=== PATIENT | male | born 1950 | race Caucasian/White ===

== ENCOUNTER 2023-05-08 11:11 | Outpatient (RCR) | payer MEDICARE, BC, SELFPAY ==
--- NOTE | 2023-05-08 14:18 | PT.OPEX ---
PT [facility] Out[facility] Eval PT LD Outpatient Eval Start: 05/08/23 14:11 Freq: Status: Active Protocol: Document 05/08/23 14:11 TRUPTI (Rec: 05/08/23 14:13 TRUPTI [id number]) E-signed By Sin Lynn DPT, MS Physical Therapy Outpatient Evaluation Insurance Information Recert Due Date 08/06/23 Insurance Name Medicare B,[employer] Medical Diagnosis Benign paroxysmal vertigo, unspecified ear Treating Diagnosis Dizziness Subjective Subjective Patient presents to PT with c/ o dizziness/ lightheadedness of insidious origin in late February. Initially saw the room move for a few seconds with rolling in bed to the R and with getting in<>out of bed. Describes complete resolution of sxs after his MD visit with no sxs since. Also describes a stressful past few months as he is going through a divorce . Pt is active swimming and golfing 5-6 days per week. Considered cancelling today due to resolution of sxs but he wanted to learn the cause of his sxs and how to prevent/ treat sxs in the future. PMH includes HTN and prostate CA in remission. AGGR factor: during active sxs rolling in bed to R, looking up and down, fwd bending and supine to sit . ALLEV factors: avoiding head movement. Pain Comments No current sxs Current Work Status Retired Preferred Name Suhas Precautions Therapy Limitations/Systems Review Not Limited Objective Functional Test Performed & Score DHI: 2% Assessment Assessment/Impression All BPPV testing negative with pt appearing to have experienced sx resolution. All other neurological and balance testing normal. Sxs do not match cervicogenic sxs with pt describing classic BPPV sxs. Instructed pt in home CRM practicing and providing a handout if he experiences recurrence of sxs. He would benefit from continued skilled PT intervention with sx recurrence. Primary Functional Limitations During active sxs rolling in bed to R, looking up and down, fwd bending and supine to sit Plan of Care Rehabilitation Potential Excellent Physical Therapy Goals Therapy goals to be completed in 10 weeks: 1.Patient will display resolution of R posterior canalithiasis BPPV symptoms for >2 consecutive weeks to improve safety with household activities. 2. Pt will report >75% improvement in DHI questionnaire to significantly improve alexandre to daily activities. Coordination/Communication With Referral Source Treatment Plan/Direct Interventions Canalith Repositioning,Manual Therapy,Neuromuscular Re-ed, Therapeutic Exercises Frequency/Duration 1x per week for as needed for 4-8 visits with recurrence of sxs. Patient Will Be Discharged From Therapy Completion of LTG(s),Skills Plateau,Independent w/HEP, Independently Progressing Evaluation Billing Untimed Code Treatment Minutes 28 Complexity Moderate Certification Information Initial Certification Date 05/08/23 Ending Certification Date 08/06/23 Provider Signature Shows Agreement With POC & Medical Necessity Physician Signature & Date Requested Please Sign/Date Here Physician Comment/Change : Physician NPI Number #
== END 2023-09-05 23:59 | disposition home or self-care (01) ==
PROVIDERS: PCP Family Medicine; Visit Provider Family Medicine
DX: H81.10 Benign paroxysmal vertigo, unspecified ear (principal); Z51.89 Encounter for other specified aftercare
CPT/HCPCS: 97162; 97535

== ENCOUNTER 2023-12-04 07:52 | Outpatient (CLI) | payer MEDICARE, BC, SELFPAY | END 2023-12-04 07:53 | disposition home or self-care (01) | LOC: RAD 07:53 | PROVIDERS: PCP Family Medicine; Visit Provider Family Medicine | DX: I34.0 Nonrheumatic mitral (valve) insufficiency (principal) | CPT/HCPCS: 93306 ==

== ENCOUNTER 2024-02-19 10:05 | Outpatient (REF) | payer MEDICARE, BC, SELFPAY ==
[2024-02-19 11:17] LABS: Cholesterol* 134 mg/dL (90-199)
[2024-02-19 11:18] LABS: Glucose* 104 mg/dL (60-115); HDL Cholesterol* 47 mg/dL (>=40); LDL Cholesterol Calculated 80 mg/dL (<100); Triglycerides* 37 mg/dL (40-149)
[2024-02-20 17:50] LABS: Sex Hormone Binding Globulin 48 nmol/L (19-76); Testosterone, Adult Male 538 ng/dL (300-720); Testosterone, Free Calculation 82 pg/mL (47-244); Testosterone, Percentage Free 1.5 % (1.6-2.9)
== END 2024-02-19 10:06 | disposition home or self-care (01) ==
LOC: NPINS 10:05
PROVIDERS: PCP Family Medicine; Visit Provider Physician Assistant
DX: N52.9 Male erectile dysfunction, unspecified (principal)
CPT/HCPCS: 80061; 82947; 84270; 84402; 84403

== ENCOUNTER 2024-03-25 08:48 | Outpatient (CLI) | payer MEDICARE, BC, SELFPAY | END 2024-03-25 08:49 | disposition home or self-care (01) | LOC: NFLDREF 04-09 15:33 | PROVIDERS: PCP Family Medicine; Referring Provider Family Medicine; Visit Provider Family Medicine | DX: I10 Essential (primary) hypertension (principal); E78.5 Hyperlipidemia, unspecified; Z85.46 Personal history of malignant neoplasm of prostate; Z12.5 Encounter for screening for malignant neoplasm of prostate | CPT/HCPCS: 80053; 80061; G0103 ==

== ENCOUNTER 2024-07-18 11:02 | Outpatient (CLI) | payer MEDICARE, BC, SELFPAY ==
--- OUTSIDE RECORDS SUMMARY | 2024-07-19 13:39 | XMS_ITS | Encounter Summary ---
Author Organization [facility] Address [address] [place] [address] Care Team Providers Care Ocean Export Agent Name Role Phone Elsewhere, Pcp Primary Care Provider Unavailabl e Reason for Referral * Outpatient (Routine) - Authorized Specialty Diagnoses / Procedures Referred By Amber sebastian Referred To Contact Urology Zahra Tinoco P.A.-C. [address] [place] [address] Zahra Tinoco P.A.-C. [address] [place] [address] Referral ID Status Reason Start Date Expiration Date V isits Requested Visits Authorized [id number] Authorized 06/20/2024 12/20/2025 1 1 Encounter Details Date Type Department Care Team (Late st Contact Info) Description 06/20/2024 Orders Only Department of Urology in [place], [place] [address] [place] [phone] Zahra Tinoco P.A.-C. [address] [place] [phone] Social History Tobacco Use Types Packs/Day Years Used Date Smoking Tobacco: Never Passive Smoke Exposure: Never Smokeless Tobacco: Never [facility] Utilities Answer Date Recorded In the past 12 months has th e electric, gas, oil, or water company threatened to shut off services in your home? No 02/21/2024 Exercise Vital Sign Answer Date Recorde d On average, how many days pe r week do you engage in moderate to strenuous exercise (like a brisk walk)? 7 days 02/21/2024 On average, how many minutes do you engage in exercise at this level? 60 min 02/21/2024 Hunger Vital Sign Answer Date Recorded Within the past 12 months, y ou worried that your food would run out before you got the money to buy more. Never true 02/21/20 Within the past 12 months, t he food you bought just didn't last and you didn't have money to get more. Never true 02/21/2024 PRAPARE - Transportation Answer Date Re corded In the past 12 months, has l ack of transportation kept you from medical appointments or from getting medications? No 10/2023 In the past 12 months, has l ack of transportation kept you from meetings, work, or from getting things needed for daily living? No 02/21/2024 Nutrition Answer Date Recorded On average, how many serving s of fruits and vegetables do you eat per day (serving size is equal to 1 cup or approximately the size of a tennis ball)? 5 or more 02/21/2024 Dental Answer Date Recorded Dental: Regular Dentist Yes 02/21/20 Employment Answer Date Recorded Employment status Retired 02/21/2024 Housing Stability Answer Date Recorded What is your living situation today? I have a [facility] place to live 02/21/2024 Sex and Gender Information Value Date Recorded Sex Assigned at Male 02/21/2024 8:00 PM CDT Gender Identity Male 02/21/2024 8:00 PM CDT Sexual Orientation Straight 02/21/2024 8: 00 PM CDT documented as of this encounter Plan of Treatment Upcoming Encounters Date Type Department Care Team (Latest Contact Info) Description 08/02/2024 3:00 PM CDT Clinical Communication Virtual Review in [place], [place] [address] [place] [address] 08/05/2024 11:00 AM CDT Office Visit Department of Urology in [place], [place] [address] [place] [address] Zahra Tinoco P.A.-C. 200 [place] [phone] Scheduled Referrals Name Type Priority Associated Diagnoses Orde r Schedule Urology office visit (clinic) General Outpatient Referral Routine Expected: 07/29/2024, Expires: 09/20/2025 documented as of this encounter Visit Diagnoses Not on filedocumented in this encounter Care Teams Ocean Export Agent Relationship Specialty Start Date End Date Elsewhere, Pcp PCP - General Internal Medicine 02/19/24 documented as of this encounter
--- OUTSIDE RECORDS SUMMARY | 2024-07-19 13:39 | XMS_ITS | Clinical Summary ---
Author Organization [facility] Address [address] [place] [address] Care Team Providers Care Fitter Hand Name Role Phone Elsewhere, Pcp Primary Care Provider Unavailabl e Source Comments Patient records contain information from all sites at [facility]. For routine questions regarding patient records, call [phone] during business hours, M-F 8:00 AM - 5:00 PM Central Time. Record requests for emergency care only can be directed to [phone] at any time.[facility] Allergies No known active allergies Medications Medication Sig Dispensed Refills Start Date End Date Status lisinopriL (PRINIVIL,ZESTRIL) 20 mg tablet Take 20 mg by mouth daily. Active simvastatin (ZOCOR) 5 mg tablet Take 5 mg by mouth at bedtime. Active AMLODIPINE BESYLATE, BULK, MISC 2.5 mg daily. Active naproxen sodium (ALEVE/ANAPROX) 220 mg tablet Take 220 mg by mouth daily. Active lysine 500 mg tablet Take 500 mg by mouth daily. Active glucosamine sulfate (GLUCOSAMINE) 500 mg capsule Take 500 mg by mouth daily. Active valACYclovir (VALTREX) 500 mg tablet Take by mouth as directed. Active Encounters Date Type Department Care Team Description 06/20/2024 Orders Only Department of Urology in [place], [place] [address] [place] [phone] Zahra Tinoco P.A.-C. 06/20/2024 Clinical Communication Department of Urology in [place], [place] [address] [place] [address] Zahra Tinoco P.A.-C. Appt Request from Last 3 Months Social History Tobacco Use Types Packs/Day Years Used Date Smoking Tobacco: Never Passive Smoke Exposure: Never Smokeless Tobacco: Never Tobacco Cessation:Counseling Given: Not Answered [facility] Utilities Answer Date Recorded In the past [...] money to buy more. Never true 02/21/20 24 Within the past 12 months, t he [...] your living situation today? I have a [facility] place to live 02/21/2024 Sex and Gender Information Value Date Recorded Sex Assigned at Male 02/21/2024 8:00 PM CDT Gender Identity Male 02/21/2024 8:00 PM CDT Sexual Orientation Straight 02/21/2024 8: 00 PM CDT Last Filed Vital Signs Vital Sign Reading Time Taken Comments Blood Pressure 108/80 11/13/2015 9:54 AM PEANUT GRADER Vital sign result from Clinical Notes. Pulse 94 11/13/2015 9:54 AM PEANUT GRADER Vital sign result from Clinical Notes. Temperature - - Respiratory Rate 16 11/13/2015 9:54 AM PEANUT GRADER Vital sign result from Clinical Notes. Oxygen Saturation - - Inhaled Oxygen Concentration - - Weight 76.7 kg (169 lb 1.5 oz) 11/13/2015 9:54 AM PEANUT GRADER Vital sign result from Clinical Notes. Height 182.8 cm (5' 11.97) 11/13/2015 9:54 AM PEANUT GRADER Vital sign result from Clinical Notes. Body Mass Index 22.95 11/13/2015 9:54 AM PEANUT GRADER Plan of Treatment Upcoming Encounters Date Type Department Care Team (Latest Contact Info) Description 08/02/2024 3:00 PM CDT Clinical Communication Virtual Review in [place], [place] [address] [place] [address] 08/05/2024 11:00 AM CDT Office Visit Department of Urology in [place], [place] [address] [place] [phone] Zahra Tinoco, PJama-Chirag. [address] [place] [phone] Health Maintenance Due Date Last Done Comments CT Colonography 1949 Cologuard 1950 Colonoscopy 1950 Colorectal Cancer Screening 1950 Creatinine Level (Kidney Fun ction Test) 1949 FIT 1949 Fasting Glucose for Diabetes Screening 1950 Hepatitis C Screening 1950 Potassium Level 1950 Sodium Level 1949 Depression Screening (Annual PHQ-2) 10/23/2023 Fall Risk Screen (Annual) 10/23/2023 COVID-19 Vaccine (2023-2 5 season) 2024 07/24/2023, 07/12/2022, 04/19/2022, Additional history exists Influenza Vaccine (#1) 2024 , 07/12/2022, 07/05/2021, Additional history exists DTaP,Tdap,and Td Vaccines (3 - Td or Tdap) 05/23/2026 05/23/2016, 03/06/2007 Zoster Vaccines Completed 10/04/2019, 06/23, 08/14/2012 Pneumococcal vaccine (65+ years) Completed 07/12/20, 11/15/2016 Advance Directives For more information, please contact: [phone] Documents on File Type Date Recorded Patient Commercial Energy Auditor Expl anation Advance Directives 02/26/2024 9:29 AM Mohini Sanchez HCPOA/ADVOCATE/AGENT/R EPRESENTATIVE/SURROGAT E Healthcare Agents on File Name Relationship Healthcare Agent Relationshi p Communication Mohini Kaye Daughter Health Care Agent Luana Sanchez Daughter First [facility] re Agent Care Teams Fitter Hand Relationship Specialty Start Date End Date Elsewhere, Pcp PCP - General Internal Medicine 02/19/24
--- OUTSIDE RECORDS SUMMARY | 2024-07-19 13:39 | XMS_ITS | Encounter Summary ---
Author Organization [facility] Address [address] [place] [address] Care Team Providers Care Delivery Merchandiser Name Role Phone Elsewhere, Pcp Primary Care Provider Unavailabl e Reason for Visit * Reason Onset Date Comments Appt Request 06/20/2024 Encounter Details Date Type Department Care Team (Late st Contact Info) Description 06/20/2024 Clinical Communication Department of Urology in [place], [place] [address] [place] [phone] Zahra Tinoco, P.ARain-C. [address] [place] [address] Appt Request Social History Tobacco Use Types Packs/Day Years Used Date Smoking Tobacco: Never Passive Smoke Exposure: Never Smokeless Tobacco: Never [facility] Utilities Answer Date Recorded In the past 12 months has [employer], gas, oil, or water beqom threatened to shut off services in your [...] your living situation today? I have a [facility] place to live 02/21/2024 Sex and Gender Information Value Date Recorded Sex Assigned at Male 02/21/2024 8:00 PM CDT Gender Identity Male 02/21/2024 8:00 PM CDT Sexual Orientation Straight 02/21/2024 8: 00 PM CDT documented as of this encounter Plan of Treatment Upcoming Encounters Date Type Department Care Team (Latest Contact Info) Description 08/02/2024 3:00 PM CDT Clinical Communication Virtual Review in [place], [place] [address] [place] [address] 08/05/2024 11:00 AM CDT Office Visit Department of Urology in [place], [place] [address] [place] [phone] Zahra Tinoco, P.A.-C. [address] [place] [phone] documented as of this encounter Visit Diagnoses Not on filedocumented in this encounter Care Teams Delivery Merchandiser Relationship Specialty Start Date End Date Elsewhere, Pcp PCP - General Internal Medicine 02/19/24 documented as of this encounter
--- OUTSIDE RECORDS SUMMARY | 2024-07-19 13:39 | XMS_ITS | Referral Summary ---
Author Organization [facility] Address [address] [place] [address] Care Team Providers Care Ham Curer Name Role Phone Elsewhere, Pcp Primary Care Provider Unavailabl e Source Comments Patient records contain information from all sites at [facility]. For routine questions regarding patient records, call [phone] during business hours, M-F 8:00 AM - 5:00 PM Central Time. Record requests for emergency care only can be directed to [phone] at any time.[facility] Encounters Date Type Department Care Team Description 06/20/2024 Orders Only Department of Urology in [place], [place] [address] [place] [address] Zahra Tinoco, P.A.-C. 06/20/2024 Clinical Communication Department of Urology in [place], [place] [address] [place] [address] Zahra Tinoco, P.A.-C. Appt Request from Last 3 Months Allergies No known active allergies Medications Medication [...] tablet Take by mouth as directed. Active Social History Tobacco Use Types Packs/Day Years Used Date Smoking Tobacco: Never Passive Smoke Exposure: Never Smokeless Tobacco: Never Tobacco Cessation:Counseling Given: Not Answered [facility] Utilities Answer Date Recorded In the past 12 months has th e [employer], gas, oil, or water company threatened to [...] your living situation today? I have a [facility] place to live 02/21/2024 Sex and Gender Information Value Date Recorded Sex Assigned at Male 02/21/2024 8:00 PM CDT Gender Identity Male 02/21/2024 8:00 PM CDT Sexual Orientation Straight 02/21/2024 8: 00 PM CDT Last Filed Vital Signs Vital Sign Reading Time Taken Comments Blood Pressure 108/80 11/13/2015 9:[address] IN TELLER Vital sign result from Clinical Notes. Pulse 94 11/13/2015 9:[address] IN TELLER Vital sign result from Clinical Notes. Temperature - - Respiratory Rate 16 11/13/2015 9:[address] IN TELLER Vital sign result from Clinical Notes. Oxygen Saturation - - Inhaled Oxygen Concentration - - Weight 76.7 kg (169 lb 1.5 oz) 11/13/2015 9:[address] IN TELLER Vital sign result from Clinical Notes. Height 182.8 cm (5' 11.97) 11/13/2015 9:[address] IN TELLER Vital sign result from Clinical Notes. Body Mass Index 22.95 11/13/2015 9:[address] IN TELLER Plan of Treatment Upcoming Encounters Date Type Department Care Team (Latest Contact Info) Description 08/02/2024 3:00 PM CDT Clinical Communication Virtual Review in [place], [place] [address] [place] [address] 08/05/2024 11:00 AM CDT Office Visit Department of Urology in [place], [place] [address] [place] [phone] Zahra Tinoco P.A.-C. [address] [place] [phone] Advance Directives For more information, please contact: [phone] Documents on File Type Date Recorded Patient Hydraulic Press Operator Expl anation Advance Directives 02/26/2024 9:29 AM Mohini MARINELLIOA/ADVOCATE/AGENT/R EPRESENTATIVE/SURROGAT E Healthcare Agents on File Name Relationship Healthcare Agent Relationshi p Communication Mohini Kaye Daughter Health Care Agent Luana Sanchez Daughter First [facility] re Agent Care Teams Ham Curer Relationship Specialty Start Date End Date Elsewhere, Pcp PCP - General Internal Medicine 02/19/24
--- OUTSIDE RECORDS SUMMARY | 2024-07-19 13:39 | XMS_ITS ---
Author Organization [facility] Address [address] [place] [address] Care Team Providers Care Educational Technology Coordinator Name Role Phone Unavailable Unavailable Unavailable Surgery Details Not on file Complications Check Surgery Details section. Procedure Estimated Blood Loss Check Surgery Details section. Procedure Findings Check Surgery Details section. Procedure Specimens Taken Check Surgery Details section.
--- OUTSIDE RECORDS SUMMARY | 2024-07-19 13:39 | XMS_ITS | Encounter Summary ---
Author Organization [facility] Address [address] [place] [address] Care Team Providers Care Explosives Truck Driver Name Role Phone Elsewhere, Pcp Primary Care Provider Unavailabl e Reason for Referral * Outpatient (Routine) - Closed Specialty Diagnoses / Procedures Referred By Amber sebastian Referred To Contact Diagnoses Incontinence Urinary Procedures URO Uroflow Zahra Tinoco, PReanna. [address] [place] [address] [facility] Referral ID Status Reason Start Date Expiration Date Visits Re quested Visits Authorized [id number] Closed 01/02/2024 01/01/2025 1 1 Encounter Details Date Type Department Care Team (Late st Contact Info) Description 01/02/2024 Orders Only Department of Urology in [place], [place] [address] [place] [address] [facility], Provider, Eric, Ph.D. Incontinence Urinary Social History Tobacco Use Types Packs/Day Years Used Date Smoking Tobacco: Never Assessed Nutrition Answer Date Recorded Nutrition: EVOO Fat Source 13 04/04 Nutrition: Servings of Fruits/Vegetables per Day Not on file 04/04/2019 Dental Answer Date Recorded Dental: Regular Dentist Unknown 12/31/19 24 Sex and Gender Information Value Date Recorded Sex Assigned at Male 02/21/2024 8:00 PM CDT Gender Identity Male 02/21/2024 8:00 PM CDT Sexual Orientation Straight 02/21/2024 8: 00 PM CDT documented as of this encounter Plan of Treatment Upcoming Encounters Date Type Department Care Team (Latest Contact Info) Description 08/02/2024 3:00 PM CDT Clinical Communication Virtual Review in [place], [place] [address] [place] [address] 08/05/2024 11:00 AM CDT Office Visit Department of Urology in [place], [place] [address] [place] [phone] Zahra Tinoco P.A.-C. [address] [place] [phone] documented as of this encounter Results * URO Uroflow (02/26/2024 10:30 AM CDT) Narrative Rayray Henry M.D. - 02/26/2024 10:30 AM CDT Rayray Henry M.D. ? 02/26/2024 ??4:03 PM REASON FOR VISIT: Uroflow: The patient here for a complex uroflow via calibrated electronic equipment and a residual urine check by ultrasound. FINDINGS: Peak flow 6 ml/sec Average flow 4 ml/sec Total voided volume 12 mls Residual urine 0 ml by ultrasound Flat flow pattern IMPRESSION: Low voided volume with low postvoid residual. ?? Zahra Tinoco P.A.-C. UROLOGY ORDERABL ES * (ABNORMAL) Urinalysis, with Microscopic: Urine, Midstream (02/26/2024 8:33 AM CDT) Source Urine, Urine, Midstream 02/26/2024 10:04 AM CDT DTL Color, U Yellow 02/26/2024 10:04 AM CDT DTL Clarity, U Clear 02/26/2024 10:04 AM CDT DTL Protein, U 39(H) <26 mg/dL 02/26/2024 11:29 AM CDT DTL Protein/Osmol ality 0.48(H) <0.42 ratio 02/26/2024 11:29 AM CDT DTL Predicted 24 HR Protein, U 464(H) <229 mg/24 h 02/26/2024 11:29 AM CDT DTL Predicted Range 147-1463 mg/24 h 02/26/2024 11:29 AM CDT DTL Comment Micro done on <2.5 mL 02/26/2024 11:10 AM CDT DTL Urine (Urine, Midstream) 02/26/2024 8:33 AM CDT 02/26/2024 10:04 AM CDT Zahra Tinoco P.A.-C. LAB URINE ORDERA BLES [facility] [address] [place] [address], [facility] [address] [place] [address] documented in this encounter Visit Diagnoses Diagnosis Incontinence Urinary Incontinence Urinary Stress And Urge [N39.46]- Primary Incontinence Urinary documented in this encounter Care Teams Explosives Truck Driver Relationship Specialty Start Date End Date Elsewhere, Pcp PCP - General Internal Medicine 02/19/24 documented as of this encounter
== END 2024-07-18 11:03 | disposition home or self-care (01) ==
LOC: NFLDREF 07-19 13:37
PROVIDERS: PCP Family Medicine; Referring Provider Family Medicine; Visit Provider Family Medicine
DX: N39.0 Urinary tract infection, site not specified (principal); B96.20 Unspecified Escherichia coli [E. coli] as the cause of diseases classified elsewhere
CPT/HCPCS: 87086; 87186

== ENCOUNTER 2024-07-25 11:00 | Outpatient (RCR) | payer MEDICARE, BC, SELFPAY ==
--- NOTE | 2024-04-15 17:36 | PT.OPEX ---
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 Symptoms started after his diagnosis of prostate CA and prostatectomy on April 17, 2008. Pt had a catheter placed after his prostatectomy that was to remain in X 3 weeks. Pt started having issues with leaking around the catheter after 14 days. Since that time, pt has not been continent. His ED also began following his prostatectomy. Prior to his surgery, pt had to issues with sexual function . Pt has reports little to no UI with sitting or lying down . However, in standing, pt has very little control of his bladder. He uses Depends and a penile clamp to help control his UI symptoms. Pt does report still leaking urine with the clamp on. Goals for therapy include less leakage and trying to improve his PFM strength. Date of Last Physician Visit 02/28/24 Current Work Status Retired Preferred Name Suhas Precautions Treatment Precautions/Contraindications prostate CA with prostatectomy R knee pain LBP Objective Functional Test Performed & Score CPSI pain: 0 Urinary symptoms: 0 QOL: 8 Assessment Assessment/Impression 73 yo client presents with UI and ED following his prostatectomy March 2008. Currently he has very little control of his bladder. UI symptoms are positionally dependent and worsen if in standing position. He gets very few urges to urinate if he is standing. Will urinate often (sometimes 30 mins apart ) to avoid leakage. If he is sitting or lying down, he can hold his urine longer and may get an urge to urinate then. At that point his urine stream is generally larger. His bowel function overall is good without any difficulty. Consistency of stool is good and he is able to empty his bowels. Pt sexual function has been greatly impacted by his surgery. Has been struggling with ED since. Has used a pump with some success . Has used medications in the past to help with erections but has not been using anything recently. Did assess pt's lumbar and pelvic region . Does have a R ant ilial rotation. L ERS from L1-L3. Overall his trunk AROM is WFL with some discomfort along R/L SIJ with SB. Did assess abdominal scarring - does have mod scar tissue along vertical abdominal incision form his prostatectomy suzanne along distal end of scar. Did not have time to complete assessment of his PFM function today. Plan is to continue with eval of PFM at his next session. Pt is appropriate for further skilled PT services including use of therapeutic exercise, therapeutic activities, neuromuscular re-ed, manual therapy, and self cares for symptom reduction. Plan of Care Rehabilitation Potential Good Physical Therapy Goals Short term goals to be achieved in 4 weeks 1. Able to state 4 of 4 urge suppression/bladder retraining strategies 2. Able to report voiding intervals of 1X every 2-4 hours, 40% of the time or more to improve bladder function. 3. Pt will demonstrate use of functional PFM/precontraction to eliminate UI during coughing, and sneezing. 4. Pt will report a reduction in his UI symptoms as seen with ability to use only 1 Depends daily, 4 out of 7 days . 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 1. Independent with self-care program to allow for reduction in her UI symptoms 2. Will report a reduction in his UI symptoms as seen with ability to stay dry at least 4 out of 7 days. 3. Will demonstrate an increase in PFM endurance to 8 sec holds X 10 reps, or greater, for ability to reduce UI symptoms with ADLs and recreational activities. 4. Pt will be able to demonstrate proper mechanics with bending, lifting, and carrying, including ability to manage IAP, to reduce RILEY symptoms. Coordination/Communication With Referral Source Treatment Plan/Direct Interventions Joint Mobilization,Manual Therapy,Neuromuscular Re-ed, Self-Care/Home Management, Therapeutic Activities, Therapeutic Exercises Frequency/Duration 1 time a week for up to 12 visits Patient Will Be Discharged From Therapy Completion of LTG(s),Skills Plateau,Independent w/HEP, Independently Progressing Evaluation Billing Untimed Code Treatment Minutes 45 Complexity Moderate Certification Information Initial Certification Date 04/15/24 Ending Certification Date 07/14/24 Provider Signature Required Yes Provider Signature Shows Agreement With POC & Medical Necessity Physician NPI Number Write NPI# Here Physician Comment/Change : Physician Signature & Date Requested Please Sign/Date Here
--- NOTE | 2024-07-25 15:38 | PT.OPDNX ---
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 Had an episode of waking 4 times one night to void. Was diagnosed with a UTI and initially was treated with sulfa med. Urine was culture and his antibiotic was switch due to it being a E.coli infection. Has 3 days left of his antibiotics. His symptoms were pretty mild including freq urination one night, feeling more tired/ sleepy, some burning with urination, brain fog. [place] Monday for surgical consult for UI symptoms.. Pt reports little to no change in his bladder symptoms. Has not done his HEP over the past 2 weeks due to his back and UTI symptoms. He reports having very few urges to urinate due to his bladder leaking throughout the day. When asked about sensation of fully emptying bladder, pt reported he feels like he empties but does have some leakage/drips afterwards. Did try doing approx 30 Kegels in the shower but leaked after 15 reps for the last 15 reps. Precautions Treatment Precautions/Contraindications prostate CA with prostatectomy R knee pain LBP Objective Functional Test Performed & Score CPSI pain: 0 Urinary symptoms: 0 QOL: 8 Patient Instructed in Risks/Benefits Yes Therapeutic Exercise Therapeutic Exercise Minutes (minutes) 15 Therapeutic Exercise: To Restore Review of pt's current HEP. Functional Status Due to continued back pain, did modify his HEP. Will continue with stretching to work on reducing muscle tightness/guarding and help; reduce tone of pelvic muscles/ PFM. Did try to add in KTC/flexion, but pt is doing pool program and is working on stretching in the pool. He will continue with LTRs and supine hip hikes for mobility of muscles, jts and nerves. Will resume PF PT with SLR, bridging/SL bridging (as tolerated), monster walks, wall squats. Did review need to limit number of PFM contractions/ reps due to fatigue and/or overactivity of muscles. Manual Therapy Techniques Manual Therapy Minutes (minutes) 30 Manual Therapy Techniques MT was perform to reduce spasms/hypertonicity, jt irritation, and to restore pain free ROM STM and TPR along B lumbar spine into B gluteals. TPR fouc was along Gmed, Gmin, piriformis, and Gmax, and along L lat/QL/obliques PA and UPAs from T10-L5 with emphasis on L1-L4 on L, grade 1-3. L SIJ and ELSA sustained mobs. MET for R ant ilial rotation. Self Care Management Training Self-Care Activity Minutes (minutes) 5 Self Care Management Training Did educate on trying to change position with urination to aid in fully voiding. Pt will try sitting and relax to pass urine. Then will stand, take deep breaths and will return to sitting. Will rock forward/backwards 4 times then will relax to see if more urine comes out. He feels like he is able to empty more completely in standing. Did suggest he stand then to see if more comes out. Treatment Minutes Timed Code Treatment Minutes 50 Total Treatment Time 50 Billing Units Manual Therapy Units 2 Self-Care Activity Units 1 Therapeutic Exercise Units 1 Assessment/Impression Assessment/Impression Was diagnosed approx 1.5 weeks ago with UTI and was treated. After return of urine culture , meds were changed. Still has 3 days left of his antibiotic. Symptoms of his UTI were pretty mild with the exception of one night (woke up 4 times to urinate). Pt continues to have issues with lumbar pain. Did go through his HEP to modify/adjust his HEP due to his current lumbar symptoms to help to reduce pain and muscle guarding/tone. Was limited with progressing into other stretches/exs due to his current lumbar dysfunction. Overall he has not noticed much change in his overall bladder function. He has not exercises over the past 1.5-2 weeks due to his symptoms. Still has UI symptoms when upright and with activity. Less UI at rest. Did review his PFM contractions to avoid overtraining and fatigue of PFM. Also changed his voiding posture to try to get better empty the bladder due to having some dribbling post void yet. Pt has appt with Urology at [facility] on Monday, Jul 29 for consult for surgery. Will hold his chart open until after his consult. He will contact PT if there is with need for more PT Plan of Care Physical Therapy Goals Short term goals to be achieved in 4 weeks 1. Able to state 4 of 4 urge suppression/bladder retraining strategies 2. Able to report voiding intervals of 1X every 2-4 hours, 40% of the time or more to improve bladder function. 3. Pt will demonstrate use of functional PFM/precontraction to eliminate UI during coughing, and sneezing. 4. Pt will report a reduction in his UI symptoms as seen with ability to use only 1 Depends daily, 4 out of 7 days . custodial goals to be achieved in 12 weeks. 1. Independent with self-care program to allow for reduction in her UI symptoms 2. Will report a reduction in his UI symptoms as seen with ability to stay dry at least 4 out of 7 days. 3. Will demonstrate an increase in PFM endurance to 8 sec holds X 10 reps, or greater, for ability to reduce UI symptoms with ADLs and recreational activities. 4. Pt will be able to demonstrate proper mechanics with bending, lifting, and carrying, including ability to manage IAP, to reduce RILEY symptoms. Daily Plan of Care Continue per POC Daily Plan of Care Comments on hold Recertification Information Initial Certification Date 04/15/24 Recertification Start Date 07/25/24 Recertification Due Date 10/23/24 Reasons to Continue Skilled Therapy Pt continues to have leaking during the day without much control when he is standing/ walking. Pt recently had a setback with diagnosis of UTI. He did stop doing his HEP over the past 2 weeks due to his back pain and generalized feeling of malaise. He is planning to see a urologist on Monday at [facility] to review his options to gain control of his UI and possibility to work on his ED. He has a good HEP. Did modify is exs today to try to reduce his back symptoms as well as still to work on improving PFM function. Unsure if he will be referred back to PF rehab at this time. If pt is direted back for more PF rehab , will continue to treat pt for up to 8 more sessions or as directed. Rehabilitation Potential guarded Continued Plan of Care and Interventions Will continue with up to 8 more session as/if directed by his urologist. Will continue with ther exs, NMRE, self care, TA and MT to try to reduce PFM symtpoms. Provider Signature Shows Agreement With POC & Medical Necessity Physician Comment/Change Comment or Changes Physician NPI Number #
== END 2024-11-22 23:59 | disposition home or self-care (01) ==
PROVIDERS: PCP Family Medicine; Visit Provider Family Medicine
DX: R32 Unspecified urinary incontinence (principal); N52.9 Male erectile dysfunction, unspecified; R27.8 Other lack of coordination; L90.5 Scar conditions and fibrosis of skin; Z51.89 Encounter for other specified aftercare
CPT/HCPCS: 97110; 97140; 97162; 97535

== ENCOUNTER 2024-07-31 10:39 | Outpatient (CLI) | payer MEDICARE, BC, SELFPAY ==
--- OUTSIDE RECORDS SUMMARY | 2024-08-02 13:04 | XMS_ITS | Clinical Summary ---
Author Organization [facility] Address [address] [place] [address] Care Team Providers Care Sonographer Name Role Phone Elsewhere, Pcp Primary Care Provider Unavailabl e Source Comments Patient records contain information from all sites at [facility]. For routine questions regarding patient records, call [phone] during business hours, M-F 8:00 AM - 5:00 PM Central Time. Record requests for emergency care only can be directed to [phone] at any time.[facility] Allergies No known active allergies Medications Medication [...] 06/20/2024 Orders Only Department of Urology in [place], [place] [address] [place] [phone] Zahra Tinoco P.A.-C. 06/20/2024 Clinical Communication Department of Urology in [place], [place] [address] [place] [address] Zahra Tinoco P.A.-C. Appt Request from Last 3 Months Social History Tobacco Use Types Packs/Day Years Used Date Smoking Tobacco: Never Passive Smoke Exposure: Never Smokeless Tobacco: Never Tobacco Cessation:Counseling Given: Not Answered [facility] Utilities Answer Date Recorded In the [...] your living situation today? I have a [facility] place to live 02/21/2024 Sex and Gender Information Value Date Recorded Sex Assigned at Male 02/21/2024 8:00 PM CDT Gender Identity Male 02/21/2024 8:00 PM CDT Sexual Orientation Straight 02/21/2024 8: 00 PM CDT Last Filed Vital Signs Vital Sign Reading Time Taken Comments Blood Pressure 108/80 11/13/2015 9:54 AM DYNAMIC ETCHING PROCESSOR Vital sign result from Clinical Notes. Pulse 94 11/13/2015 9:54 AM DYNAMIC ETCHING PROCESSOR Vital sign result from Clinical Notes. Temperature - - Respiratory Rate 16 11/13/2015 9:54 AM DYNAMIC ETCHING PROCESSOR Vital sign result from Clinical Notes. Oxygen Saturation - - Inhaled Oxygen Concentration - - Weight 76.7 kg (169 lb 1.5 oz) 11/13/2015 9:54 AM DYNAMIC ETCHING PROCESSOR Vital sign result from Clinical Notes. Height 182.8 cm (5' 11.97) 11/13/2015 9:54 AM DYNAMIC ETCHING PROCESSOR Vital sign result from Clinical Notes. Body Mass Index 22.95 11/13/2015 9:54 AM DYNAMIC ETCHING PROCESSOR Plan of Treatment Upcoming Encounters Date Type Department Care Team (Latest Contact Info) Description 08/02/2024 3:00 PM CDT Clinical Communication Virtual Review in [place], [place] [address] [place] [address] 08/05/2024 11:00 AM CDT Office Visit Department of Urology in [place], [place] [address] [place] [phone] Zahra Tinoco, PJama-Chirag. [address] [place] [phone] Health Maintenance Due Date Last Done Comments [...] Advance Directives For more information, please contact: [phone] Documents on File Type Date Recorded Patient Account Management Specialist Expl anation Advance Directives 02/26/2024 9:29 AM Mohini Sanchez HCPOA/ADVOCATE/AGENT/R EPRESENTATIVE/SURROGAT E Healthcare Agents on File Name Relationship Healthcare Agent Relationshi p Communication Mohini Kaye Daughter Health Care Agent Luana Sanchez Daughter [facility] re Agent Care Teams Sonographer Relationship Specialty Start Date End Date Elsewhere, Pcp PCP - General Internal Medicine 02/19/24
--- OUTSIDE RECORDS SUMMARY | 2024-08-02 13:04 | XMS_ITS | Encounter Summary ---
Author Organization [facility] Address [address] [place] [address] Care Team Providers Care Prototype Engineer Manager Name Role Phone Elsewhere, Pcp Primary Care Provider Unavailabl e Reason for Visit * Reason Onset Date Comments Appt Request 06/20/2024 Encounter Details Date Type Department Care Team (Late st Contact Info) Description 06/20/2024 Clinical Communication Department of Urology in [place], [place] [address] [place] [address] Zahra Tinoco, P.ARain-C. [address] [place] [address] Appt Request Social History Tobacco Use Types Packs/Day Years Used Date Smoking Tobacco: Never Passive Smoke Exposure: Never Smokeless Tobacco: Never [facility] Utilities Answer Date Recorded In the past 12 months has [employer], gas, oil, or water [employer] threatened to shut off services in your [...] your living situation today? I have a [facility] place to live 02/21/2024 Sex and Gender Information Value Date Recorded Sex Assigned at Male 02/21/2024 8:00 PM CDT Gender Identity Male 02/21/2024 8:00 PM CDT Sexual Orientation Straight 02/21/2024 8: 00 PM CDT documented as of this encounter Plan of Treatment Upcoming Encounters Date Type Department Care Team (Latest Contact Info) Description 08/02/2024 3:00 PM CDT Clinical Communication Virtual Review in [place], [place] [address] [place] [address] 08/05/2024 11:00 AM CDT Office Visit Department of Urology in [place], [place] [address] [place] [phone] Zahra Tinoco, P.A.-C. [address] [place] [phone] documented as of this encounter Visit Diagnoses Not on filedocumented in this encounter Care Teams Prototype Engineer Manager Relationship Specialty Start Date End Date Elsewhere, Pcp PCP - General Internal Medicine 02/19/24 documented as of this encounter
--- OUTSIDE RECORDS SUMMARY | 2024-08-02 13:04 | XMS_ITS ---
Author Organization [facility] Address [address] [place] [address] Care Team Providers Care Lie Detector Operator Name Role Phone Unavailable Unavailable Unavailable Surgery Details Not on file Complications Check Surgery Details section. Procedure Estimated Blood Loss Check Surgery Details section. Procedure Findings Check Surgery Details section. Procedure Specimens Taken Check Surgery Details section.
--- OUTSIDE RECORDS SUMMARY | 2024-08-02 13:04 | XMS_ITS | Encounter Summary ---
Author Organization [facility] Address [address] [place] [address] Care Team Providers Care Fleet Service Clerk Name Role Phone Elsewhere, Pcp Primary Care Provider Unavailabl e Reason for Referral * Outpatient (Routine) - Authorized Specialty Diagnoses / Procedures Referred By Amber sebastian Referred To Contact Urology Zahra Tinoco P.A.-C. [address] [place] [address] Zahra Tinoco P.A.-C. [address] [place] [phone] Referral ID Status Reason Start Date Expiration Date V isits Requested Visits Authorized [id number] Authorized 06/20/2024 12/20/2025 1 1 Encounter Details Date Type Department Care Team (Late st Contact Info) Description 06/20/2024 Orders Only Department of Urology in [place], [place] [address] [place] [phone] Zahra Tinoco P.A.-C. [address] [place] [phone] Social History Tobacco Use Types Packs/Day Years Used Date Smoking Tobacco: Never Passive Smoke Exposure: Never Smokeless Tobacco: Never [facility] Utilities Answer Date Recorded In the past [...] your living situation today? I have a [facility] place to live 02/21/2024 Sex [...] PM CDT Clinical Communication Virtual Review in [place], [place] [address] [place] [address] 08/05/2024 11:00 AM CDT Office Visit Department of Urology in [place], [place] [address] [place] [address] Zahra Tinoco P.A.-C. 200 [place] [address] Scheduled Referrals Name Type Priority Associated Diagnoses Orde r Schedule Urology office visit (clinic) General Outpatient Referral Routine Expected: 07/29/2024, Expires: 09/20/2025 documented as of this encounter Visit Diagnoses Not on filedocumented in this encounter Care Teams Fleet Service Clerk Relationship Specialty Start Date End Date Elsewhere, Pcp PCP - General Internal Medicine 02/19/24 documented as of this encounter
--- OUTSIDE RECORDS SUMMARY | 2024-08-02 13:04 | XMS_ITS | Referral Summary ---
Author Organization [facility] Address [address] [place] [address] Care Team Providers Care Networking Engineer Name Role Phone Elsewhere, Pcp Primary Care Provider Unavailabl e Source Comments Patient records contain information from all sites at [facility]. For routine questions regarding patient records, call [phone] during business hours, M-F 8:00 AM - 5:00 PM Central Time. Record requests for emergency care only can be directed to [phone] at any time.[facility] Encounters Date Type Department Care Team Description 06/20/2024 Orders Only Department of Urology in [place], [place] [address] [place] [address] Zahra Tinoco, P.A.-C. 06/20/2024 Clinical Communication Department of Urology in [place], [place] [address] [place] [address] Zahra Tinoco, P.A.-C. Appt Request from Last [...] Tobacco: Never Tobacco Cessation:Counseling Given: Not Answered [facility] Utilities Answer Date Recorded In the past 12 months has th e [employer], gas, oil, or water company threatened to [...] your living situation today? I have a [facility] place to live 02/21/2024 Sex and Gender Information Value Date Recorded Sex Assigned at Male 02/21/2024 8:00 PM CDT Gender Identity Male 02/21/2024 8:00 PM CDT Sexual Orientation Straight 02/21/2024 8: 00 PM CDT Last Filed Vital Signs Vital Sign Reading Time Taken Comments Blood Pressure 108/80 11/13/2015 9:54 AM LIVESTOCK FARM MANAGER Vital sign result from Clinical Notes. Pulse 94 11/13/2015 9:54 AM LIVESTOCK FARM MANAGER Vital sign result from Clinical Notes. Temperature - - Respiratory Rate 16 11/13/2015 9:54 AM LIVESTOCK FARM MANAGER Vital sign result from Clinical Notes. Oxygen Saturation - - Inhaled Oxygen Concentration - - Weight 76.7 kg (169 lb 1.5 oz) 11/13/2015 9:54 AM LIVESTOCK FARM MANAGER Vital sign result from Clinical Notes. Height 182.8 cm (5' 11.97) 11/13/2015 9:54 AM LIVESTOCK FARM MANAGER Vital sign result from Clinical Notes. Body Mass Index 22.95 11/13/2015 9:54 AM LIVESTOCK FARM MANAGER Plan of Treatment Upcoming Encounters Date Type Department Care Team (Latest Contact Info) Description 08/02/2024 3:00 PM CDT Clinical Communication Virtual Review in [place], [place] [address] [place] [address] 08/05/2024 11:00 AM CDT Office Visit Department of Urology in [place], [place] [address] [place] [phone] Zahra Tinoco P.A.-C. [address] [place] [phone] Advance Directives For more information, please contact: [phone] Documents on File Type Date Recorded Patient Manager Developmental Expl anation Advance Directives 02/26/2024 9:29 AM Mohini MARINELLIOA/ADVOCATE/AGENT/R EPRESENTATIVE/SURROGAT E Healthcare Agents on File Name Relationship Healthcare Agent Relationshi p Communication Mohini Kaye Daughter Health Care Agent Luana Sanchez Daughter [facility] re Agent Care Teams Networking Engineer Relationship Specialty Start Date End Date Elsewhere, Pcp PCP - General Internal Medicine 02/19/24
--- OUTSIDE RECORDS SUMMARY | 2024-08-02 13:04 | XMS_ITS | Encounter Summary ---
Author Organization [facility] Address [address] [place] [address] Care Team Providers Care Supervisor Receiving And Processing Name Role Phone Elsewhere, Pcp Primary Care Provider Unavailabl e Reason for Referral * Outpatient (Routine) - Closed Specialty Diagnoses / Procedures Referred By Amber sebastian Referred To Contact Diagnoses Incontinence Urinary Procedures URO Uroflow Zahra Tinoco, PReanna. [address] [place] [address] [facility] Referral ID Status Reason Start Date Expiration Date Visits Re quested Visits Authorized [id number] Closed 01/02/2024 01/01/2025 1 1 Encounter Details Date Type Department Care Team (Late st Contact Info) Description 01/02/2024 Orders Only Department of Urology in [place], [place] [address] [place] [address] [facility], Provider, Eric, Ph.D. Incontinence Urinary Social History [...] PM CDT Clinical Communication Virtual Review in [place], [place] [address] [place] [address] 08/05/2024 11:00 AM CDT Office Visit Department of Urology in [place], [place] [address] [place] [phone] Zahra Tinoco P.A.-C. [address] [place] [phone] documented as of this encounter Results * [...] Zahra Tinoco P.A.-C. LAB URINE ORDERA BLES [facility] [place] [address] [place] [address], [facility] [address] [place] [address] documented in this encounter Visit Diagnoses Diagnosis Incontinence Urinary Incontinence Urinary Stress And Urge [N39.46]- Primary Incontinence Urinary documented in this encounter Care Teams Supervisor Receiving And Processing Relationship Specialty Start Date End Date Elsewhere, Pcp PCP - General Internal Medicine 02/19/24 documented as of this encounter
== END 2024-07-31 10:40 | disposition home or self-care (01) ==
LOC: NFLDREF 08-02 13:01
PROVIDERS: PCP Family Medicine; Referring Provider Family Medicine; Visit Provider Family Medicine
DX: N39.0 Urinary tract infection, site not specified (principal)
CPT/HCPCS: 87086

== ENCOUNTER 2024-09-11 04:48 | Emergency (ER) | payer MEDICARE, BC, SELFPAY ==
[2024-09-11 04:56] VITALS: BP 179/101; PULSE 76; RESP 16; TEMP 36.6; O2SAT 97; BMI 23.7
--- NOTE | 2024-09-11 05:00 | ED_ITS ---
HPI - Abdominal Pain General Time Seen by Provider: 05:00 Date Seen: 09/11/24 Chief Complaint: Abdominal Pain Stated Complaint: Abdominal pain Time Seen by Provider: 09/11/24 05:00 Source: patient, RN notes reviewed and old records reviewed Mode of arrival: ambulatory Limitations: no limitations History of Present Illness HPI narrative: Mr. Smalls is a very pleasant 73-year-old gentleman with history of recent UTI, COVID treated with Paxlovid, hypertension, prostatectomy who comes to the emergency room with complaints of abdominal pain. Patient notes COVID infection diagnosed September 01 and Paxlovid treatment on September 02 with improvement of symptoms. He states a few days ago he started noticing abdominal discomfort. He shows this to be the hypogastric area and upper abdomen. This morning the pain awoke him and it was quite severe. At rest he rates this a 3/10 but with movement it increases to 6 to 7/10. It is not associated with nausea vomiting diarrhea or constipation. In fact he had a normal bowel movement yesterday. He has had a history of prostate surgery but still retains appendix and gallbladder. He does feel like perhaps he is a little distended. He has not had fever or chills. He was worried about something with his heart although he has no chest pain or shortness of breath. He also notes his father had an aneurysm and he shows this to be the left lower quadrant-wondering if this press perhaps and iliac artery aneurysm. Denies lower extremity symptoms. Denies painful urination at this time. Does note that when he was treated for the UTI a few weeks ago by his primary he had to change the antibiotic after the urine culture returned. Related Data Home Medications ?Medication ?Instructions ?Recorded ?Confirmed lysine HCl 500 mg capsule 500 mg PO QDAY 12/09/22 09/02/24 naproxen sodium 220 mg tablet 220 mg PO QDAY 03/23/23 09/02/24 antiarthritic combination no.2 900 900 mg PO BID 04/02/24 09/02/24 mg tablet (glucosamine-chondroitin) Previous Rx's ?Medication ?Instructions ?Recorded amlodipine 2.5 mg tablet 2.5 mg PO QDAY #90 tabs 04/02/24 lisinopril 20 mg tablet 20 mg PO QDAY #90 tabs 04/02/24 metronidazole 0.75 % topical gel 1 applic topical BID #45 grams 04/02/24 simvastatin 5 mg tablet 5 mg PO QHS #90 tabs 04/02/24 valacyclovir 1 gram tablet 2,000 mg (2 x 1 gram) PO BID PRN 04/02/24 cold sores #20 tabs vardenafil 20 mg tablet 20 mg PO .COMPLEX PRN sexual 04/02/24 activity #10 tabs nirmatrelvir 300 mg (150 mg 3 ea (3 x 300 mg (150 mg x 2)-100 09/02/24 x2)-ritonavir 100 mg tablet,dose mg) PO QAM AND QPM #30 tabs pack (Paxlovid) Allergies Allergy/AdvReac Type Severity Reaction Status Date / Time No Known Drug Allergies Allergy Verified 09/02/24 12:51 Review of Systems Status of ROS Reports: 10 or more systems reviewed and unremarkable except as noted in History and below Const Denies: fever or chills ENMT Denies: throat pain, neck pain, nasal discharge or nasal congestion Cardio Denies: chest pain, palpitations, swelling of feet/ankles, lightheadedness or shortness of breath with exertion Resp Denies: shortness of breath GI Reports: abdominal pain; Denies: nausea, vomiting, diarrhea or constipation Denies: painful urination or urinary frequency Musculo Denies: neck pain PFSH PFSH Medical History Health care directive on file ?Z78.9 - Other specified health status (ICD-10) Surgical History History of prostatectomy ?Z90.79 - Acquired absence of other genital organ(s) (ICD-10) History of colonoscopy ?Z98.890 - Other specified postprocedural states (ICD-10) History of arthroscopy of right knee ?Z98.890 - Other specified postprocedural states (ICD-10) Social History Narrative: marital problem What is your current living situation?: I presently have a place to live Problems where you live: no known problems In the past 12 months, utilities in danger of being shut off: no In the past 12 mos, have been you worried that your food would run out before you had money to buy more?: never true In the past 12 mos, the food you bought just didn't last and you didn't have money to buy more?: never true Smoking Status: Never smoker Non-prescribed substance use: denies use How often does anyone, including family, friends and others, physically hurt you : never How often does anyone, including family, friends and others, insult or talk down to you: never How often does anyone, including family, friends and others, threaten you with harm: never How often does anyone, including family, friends and others, scream or curse at you: never Exam Narrative: Exam Narrative: Alert and oriented. Very pleasant well-spoken gentleman. Nontoxic in appearance. External ears eyes nose clear. Heart with regular rate and rhythm and lungs are clear bilaterally. Abdomen shows tenderness in the left lower quadrant epigastrium. Bowel sounds are present. No masses are palpated. Lower extremities with symmetrical pedal pulses. Moving all extremities. Const: Vital Signs, click to edit/add: Vital Signs - 24 hr 09/11/24 04:56 09/11/24 06:31 Temperature 97.9 F Pulse Rate 68 Pulse Rate [Pulse Oximeter] 76 Respiratory Rate 16 16 Blood Pressure 146/92 H Blood Pressure [Ri ght Upper Arm] 179/101 H Pulse Oximetry 97 95 Oxygen Delivery Me thod Room Air Documenting provider has reviewed patient's vital signs: yes Course Course ED Course: Differential diagnosis includes but is not limited to gastritis, lipase, cholecystitis, pancreatitis, aortic dissection, bowel obstruction, UTI, anginal equivalent. EKG is ordered along with troponin and cardiac monitoring. Will place IV and draw blood to include CBC, lipase, CRP, lactate, comprehensive panel. Will also collect a urine sample. Plan on abdominal CT. Patient declines any pain medication at this time. Vital Signs Vital signs: Initial Vital Signs Temperature 97.9 F 09/11/24 04:56 Temperature Source Temporal Artery Scan 09/11/24 04:56 Pulse Rate 76 09/11/24 04:56 Respiratory Rate 16 09/11/24 04:56 Blood Pressure 179/101 H 09/11/24 04:56 Blood Pressure Mean 127 H 09/11/24 04:56 Blood Pressure Position Sitting 09/11/24 04:56 Pulse Oximetry 97 09/11/24 04:56 Oxygen Delivery Method Room Air 09/11/24 04:56 Vital Signs Temperature 97.9 F 09/11/24 04:56 Pulse Rate 76 09/11/24 04:56 Respiratory Rate 16 09/11/24 04:56 Blood Pressure 179/101 H 09/11/24 04:56 Pulse Oximetry 97 09/11/24 04:56 Oxygen Delivery Method Room Air 09/11/24 04:56 Temperature 97.9 F 09/11/24 04:56 Pulse Rate 68 09/11/24 06:31 Respiratory Rate 16 09/11/24 06:31 Blood Pressure 146/92 H 09/11/24 06:31 Pulse Oximetry 95 09/11/24 06:31 Oxygen Delivery Method Room Air 09/11/24 04:56 MDM - Abdominal Pain MDM Narrative Medical decision making narrative: 1. Constipation-suggest MiraLax daily for 5 days. 2. Gastritis-patient notes increasing Aleve use during his recent bout of COVID. Suggest omeprazole 20 mg daily for 2 weeks. Eliminate alcohol. 3. Disposition-home at this time. No evidence of aortic dissection, underlying cardiac cause of discomfort and D-dimer is negative. Return as needed for worsening symptoms. Medical Records Attestation: I reviewed the patient's medical records. Lab Data Attestation: I reviewed the patient's lab results. Labs: Lab Results 09/11/24 Range/Units 05:15 WBC 6.17 (4.50-11.00) K/uL RBC 4.31 (4.30-5.90) m/uL Hgb 13.4 L (13.5-17.5) gm/dL Hct 40.9 (37.0-53.0) % MCV 95 (80-100) fL MCH 31 (26-34) pg MCHC 33 (32-36) gm/dL RDW Coeff of [place] 12.9 (11.5-15.5) % Plt Count 209 (140-440) K/uL Neut % (Auto) 60.0 (42.0-72.0) % Lymph % (Auto) 26.7 (20-44) % [place] % (Auto) 9.4 (0.0-11.0) % Eos % (Auto) 3.4 (0.0-7.0) % Baso % (Auto) 0.3 (0.0-3.0) % Neut # (Auto) 3.70 (1.7-7.0) K/uL Lymph # (Auto) 1.65 (0.90-2.90) K/uL [place] # (Auto) 0.60 (0.00-0.90) K/UL Eos # (Auto) 0.21 (0.00-0.50) K/uL Baso # (Auto) 0.02 (0.00-0.30) K/uL Abs Immat Gran (auto) 0.01 (0.00-0.30) K/uL Imm/Tot Granulo (auto) 0.2 % D-Dimer Quant (PE/DVT) 0.30 (0.00-0.50) ug/ml Sodium 135 (135-149) mmol/L Potassium 3.9 (3.6-5.1) mmol/L Chloride 102 (96-114) mmol/L Carbon Dioxide 26 (20-32) mmol/L Anion Gap 7 (7-15) mEq/L BUN 21 (7-30) mg/dL Creatinine 0.8 (0.5-1.5) mg/dL Estimated Creat Clear 71.13 Estimated GFR 93 ml/min Glucose 102 (60-115) mg/dL Lactate 0.7 (0.5-1.9) mmol/L Calcium 9.1 (8.4-10.6) mg/dL Total Bilirubin 0.3 (0.1-1.5) mg/dL AST 20 (12-35) U/L ALT 19 (4-50) U/L Alkaline Phosphatase 48 (40-150) U/L C-Reactive Protein < 0.5 L (0.5-1.0) mg/dL Total Protein 6.5 (6.0-8.3) g/dL Albumin 3.9 (3.3-5.0) g/dL Lipase 62 (23-300) U/L Urine Color Yellow (Yellow) Urine Appearance Clear (Clear) Urine pH 6.0 (5.0-8.5) Ur Specific [place] 1.015 (1.000-1.030) Urine Protein Negative (Negative) Urine Glucose (UA) Negative (Negative) Urine Ketones Negative (Negative) Urine Blood Negative (Negative) Urine Nitrite Negative (Negative) Urine Bilirubin Negative (Negative) Urine Urobilinogen 0.2 (0.2-1.0) Ur Leukocyte Esterase Negative (Negative) Urine RBC 0-2 (0-2) Urine WBC 0-2 (0-5) Ur Squamous Epith Cells None (None-Few) Urine Bacteria None (None) POC Troponin I 0.01 (0.01-0.04) ng/ml Imaging Data CT scan - abdomen: Attestation: I have reviewed the pertinent imaging results. Radiologist's impression: LEON BASES: Minimal basilar atelectasis or scarring.Heart size normal the lung bases. Vascular calcifications associated with the heart. LIVER/BILIARY SYSTEM:Steatosis. Low-density lesions likely cysts. No biliary ductal dilation. Normal-appearing gallbladder. ADRENALS: Normal KIDNEYS, URETERS and BLADDER:The kidneys appear normal other than low-density lesions, likely cysts. No calcified calculus. No hydronephrosis or hydroureter. The bladder appears normal. SPLEEN:Normal appearance. PANCREAS: Appears normal. RETROPERITONEUM and MESENTERY: There is no mass, adenopathy or aortic aneurysm. Atherosclerotic vascular calcification. Diffuse vascular ectasia without tristan aneurysm. GASTROINTESTINAL SYSTEM: There is no evidence of diverticulitis, colitis, mechanical obstruction, or appendicitis. The small bowel as visualized appears normal.Moderate diffuse fecal retention. Diverticulosis. PELVIS: No mass, adenopathy or free fluid. OSSEOUS STRUCTURES and ABDOMINAL WALL: There is an age-appropriate appearance of the osseous structures.No significant abdominal wall defect. OTHER: No free fluid or free air. IMPRESSION: 1. Moderate diffuse fecal retention. Diverticulosis. 2. Other incidental findings as discussed in the body of the report. 3. No specific visible cause for abdominal pain ECG Data Attestation: I personally reviewed and interpreted this ECG as follows: ECG interpretation date: 09/11/24 Interpretation: EKG by my read shows sinus rhythm at a rate of 70. I do not note any acute ST or T-wave changes. I do note Q-waves in V1 and V2 possibly indicating old septal infarct. WI and QT intervals within normal limits. Discharge Plan Discharge Clinical Impression: Abdominal pain, Constipation Patient Disposition: Home, Self-Care Condition: Improved Additional Instructions: Suggest holding Aleve for now and using Tylenol as needed for discomfort. Start omeprazole 1 tablet daily for 2 weeks to allow stomach to heal likely from recent illness and use of your pain medication. You were found to also be constipated and thus suggest the use of MiraLax once daily for 5 days. Return to the emergency room for worsening symptoms. Prescriptions: No Action amlodipine 2.5 mg tablet 2.5 mg PO QDAY Qty: 90 3RF lisinopril 20 mg tablet 20 mg PO QDAY Qty: 90 3RF metronidazole 0.75 % gel 1 applic topical BID Qty: 45 1RF Rx Instructions: THIN FILM TO AFFECTED AREA AFTER WASHING simvastatin 5 mg tablet 5 mg PO QHS Qty: 90 3RF valacyclovir 1 gram tablet 2,000 mg PO BID PRN (Reason: cold sores) Qty: 20 3RF Rx Instructions: Take at onset on cold sore flare, 2 tabs po now and again 12 hrs later. vardenafil 20 mg tablet 20 mg PO .COMPLEX PRN (Reason: sexual activity) Qty: 10 11RF Rx Instructions: TAKE ONE TABLET ONE HOUR PRIOR TO INTERCOURSE Paxlovid 300 mg (150 mg x 2)-100 mg tablets,dose pack 3 ea PO QAM AND QPM Qty: 30 0RF lysine HCl 500 mg capsule 500 mg PO QDAY naproxen sodium 220 mg tablet 220 mg PO QDAY glucosamine-chondroitin 900 mg tablet 900 mg PO BID Follow Up/Referrals: Larry Payne MD [Primary Care Provider] - Stand Alone Forms: [employer] Info Instructions
[2024-09-11 05:32] LABS: Lactate* 0.7 mmol/L (0.5-1.9)
[2024-09-11 05:35] LABS: Appearance Urine Clear (Clear); Basophils Absolute Auto 0.02 K/uL (0.00-0.30); Basophils Percent Auto 0.3 % (0.0-3.0); Bilirubin Urine Negative (Negative); Blood Urine Negative (Negative); Color Urine Yellow (Yellow); Eosinophils Absolute Auto 0.21 K/uL (0.00-0.50); Eosinophils Percent Auto 3.4 % (0.0-7.0); Glucose Urine Negative (Negative); Hematocrit 40.9 % (37.0-53.0); Hemoglobin* 13.4 gm/dL (13.5-17.5); Immature Granulocytes Abs Auto 0.01 K/uL (0.00-0.30); Immature Granulocytes Pct Auto 0.2 %; Ketones Urine Negative (Negative); Leukocyte Esterase Urine Negative (Negative); Lymphocytes Absolute Auto 1.65 K/uL (0.90-2.90); Lymphocytes Percent Auto 26.7 % (20-44); Mean Corpuscular HGB Conc 33 gm/dL (32-36); Mean Corpuscular Hemoglobin 31 pg (26-34); Mean Corpuscular Volume 95 fL (80-100); Monocytes Percent Auto 9.4 % (0.0-11.0); Nitrite Urine Negative (Negative); Platelet Count* 209 K/uL (140-440); Protein Urine Negative (Negative); RDW Coefficient of Variation % 12.9 % (11.5-15.5); Red Blood Count 4.31 m/uL (4.30-5.90); Slide Review Reflex No; Specific Gravity Urine 1.015 (1.000-1.030); Urobilinogen Urine 0.2 (0.2-1.0); White Blood Count* 6.17 K/uL (4.50-11.00)
--- OUTSIDE RECORDS SUMMARY | 2024-09-11 05:35 | XMS_ITS | Encounter Summary ---
Author Organization [facility] Address [address] [place] [address] Care Team Providers Care Applications Administrator Name Role Phone Elsewhere, Pcp Primary Care Provider Unavailabl e Reason for Referral * Outpatient (Routine) - Authorized Specialty Diagnoses / Procedures Referred By Amber sebastian Referred To Contact Urology Zahra Tinoco P.A.-C. [address] [place] [address] Phone: tel: fax: Magdaleno Jimenez M.D. [address] [place] [phone] Phone: tel: fax: Referral ID Status Reason Start Date Expiration Date V isits Requested Visits Authorized [id number] Authorized 08/05/2024 02/04/2026 1 1 * Outpatient (Routine) - Authorized Specialty Diagnoses / Procedures Referred By Amber sebastian Referred To Contact Diagnoses Incontinence Urinary Stress Male Procedures Cystoscopy (specific provider) Zahra Tinoco P.A.-C. [address] [place] [phone] Phone: tel: fax: Magdaleno Jimenez M.D. [address] [place] [phone] Phone: tel: fax: Referral ID Status Reason Start Date Expiration Date V isits Requested Visits Authorized [id number] Authorized 08/05/2024 08/05/2025 1 1 Reason for Visit * Outpatient (Routine) - Closed Specialty Diagnoses / Procedures Referred By Amber sebastian Referred To Contact Urology Zahra Tinoco P.A.-C. [address] [place] [phone] Phone: tel: fax: Zahra Tinoco P.A.-C. [address] [place] [phone] Phone: tel: fax: Referral ID Status Reason Start Date Expiration Date Visits Re quested Visits Authorized [id number] Closed 06/20/2024 12/20/2025 1 1 Encounter Details Date Type Department Care Team (Late st Contact Info) Description 08/05/2024 11:00 AM CDT Office Visit Department of Urology in [place], [place] [address] [place] [phone] Zahra Tinoco P.A.-C. [address] [place] [phone] Incontinence Urinary Stress And Urge (Primary Dx); Incontinence Urinary Stress Male Social History Tobacco Use Types Packs/Day Years Used Date Smoking Tobacco: Never Passive Smoke Exposure: Never Smokeless Tobacco: Never Alcohol Use Standard Drinks/Week Comments Yes 7 (1 standard drink = 0.6 oz pur e alcohol) [facility] Utilities Answer Date Recorded In the past 12 months has [employer], gas, oil, or water [employer] threatened to shut off services in your [...] your living situation today? I have a [facility] place to live 02/21/2024 Sex and Gender Information Value Date Recorded Sex Assigned at Male 02/21/2024 8:00 PM CDT Legal Sex Male 8:12 PM ELECTRICAL MECHANICAL TECHNICIAN Gender Identity Male 02/21/2024 8:00 PM CDT Sexual Orientation Straight 02/21/2024 8: 00 PM CDT documented as of this encounter Progress Notes * Zahra Tinoco P.A.-C. - 08/05/2024 11:00 AM CDT SUBJECTIVE REFERRAL SOURCE: The patient is being seen in consultation at the request of Zahra Tinoco P.A.-C. [address] [place] [phone] CHIEF COMPLAINT / REASON FOR VISIT Patient seen on my calendar. Urinary incontinence recheck. HISTORY OF PRESENT ILLNESS Mr. Smalls is a pleasant 73 y.o. male who presents today for urinary incontinence. He underwent prostatectomy in March 2008 and states that a catheter was in place for about 21 days after. He deniesuse of radiation therapy. PSA has remained undetectable. He notes urinary incontinence since surgery. He has used Kegel exercises in the past. He has incontinence of 1 pad per day and sometimes 2 pads per day. He states that he will use a clamp when he is really active. He has very little incontinence at night or with sitting. He has not tried pelvic floor physical therapy. He notes that his stream can be good any feels that he empties his bladder well. He denies urinary tract infections, hesitancy, dysuria, hematuria, or stones. He is not on any blood thinning medications. He is a nonsmoker. Mr. Smalls is not having any overnight incontinence. He notes very little incontinence with sitting. Most of his incontinence occurs with standing or walking. He is using 1 thick pad per day and wearing a clamp. The following portions of the patient's history were reviewed and updated as appropriate: allergies, current medications, family history, medical history, social history, surgical history and problemlist. PAST MEDICAL HISTORY Mitral valve regurgitation Prostate cancer PAST SURGICAL HISTORY Prostatectomy Knee arthroscopy REVIEW OF SYSTEMS OBJECTIVE PHYSICAL EXAMINATION Constitutional: He is oriented to person, place, and time. Adult male in no acute distress. Neurological: He is alert and oriented to person, place, and time. Psychiatric: He has a normal mood and affect. His behavior is normal. ASSESSMENT / PLAN #1 Urinary incontinence #2 Prostate cancer s/p prostatectomy I had the pleasure of meeting with Mr. Smalls in clinic today. We reviewed his options in great detail. He tried pelvic floor physical therapy without improvement of his symptoms. We discussed urethral sling versus artificial urinary sphincter. I discussed each of these options with him in detail. We discussed obtaining a cystoscopy for further evaluation. He would like to proceed with this andthen further discuss recommendations for surgery. I have placed an order for cystoscopy with Dr. Jimenez and we will plan to see him back after his testing for further evaluation and recommendations. All questions answered. He will call with further questions. Zahra Tinoco P.A.-C. 08/05/2024 10:58 AM CDT documented in this encounter Plan of Treatment Upcoming Encounters Date Type Department Care Team (Latest Contact Info) Description 10/03/2024 1:00 PM ELECTRICAL MECHANICAL TECHNICIAN Clinical Communication Virtual Review in [place], [place] [address] [place] [phone] 10/08/2024 8:00 AM ELECTRICAL MECHANICAL TECHNICIAN Procedure visit Department of Urology in [place], [place] [address] [place] [phone] Magdaleno Jimenez M.D. [address] [place] [phone] 10/08/2024 8:30 AM ELECTRICAL MECHANICAL TECHNICIAN Office Visit Department of Urology in [place], [place] [address] [place] [phone] Magdaleno Jimenez M.D. [address] [place] [phone] Scheduled Referrals Name Type Priority Associated Diagnoses Orde r Schedule Urology office visit (clinic) Outpatient Referral Routine Expected: 08/05/2024, Expires: 11/05/2025 documented as of this encounter Visit Diagnoses Diagnosis Incontinence Urinary Stress And Urge- Primary Incontinence Urinary Stress Male documented in this encounter Care Teams Applications Administrator Relationship Specialty Start Date End Date Elsewhere, Pcp PCP - General Internal Medicine 02/19/24 08/29/24 documented as of this encounter
--- OUTSIDE RECORDS SUMMARY | 2024-09-11 05:35 | XMS_ITS | Clinical Summary ---
Author Organization [facility] Address [address] [place] [address] Care Team Providers Care Staff Analyst Name Role Phone None Reported, Pcp Primary Care Provider Unavail able Source Comments Patient records contain information from all sites at [facility]. For routine questions regarding patient records, call [phone] during business hours, M-F 8:00 AM - 5:00 PM Central Time. Record requests for emergency care only can be directed to [phone] at any time.[facility] Allergies No known active allergies Medications lisinopriL (PRINIVIL,ZESTRI L) 20 mg tablet Take 20 mg by [...] Take 500 mg by mouth daily. Active valacyclovir HCl (VALACYCLOVIR ORAL) Take 2 g by mouth as needed. Active Encounters Date Type Department Care Team Description 08/05/2024 11:00 AM CDT Office Visit Department of Urology in [place], [place] [address] [place] [address] Zahra Tinoco, P.A.-C. Incontinence Urinary Stress And Urge (Primary Dx); Incontinence Urinary Stress Male 08/02/2024 3:00 PM CDT Clinical Communication Virtual Review in [place], [place] [address] [place] [address] Pre-visit Intake 06/20/2024 Orders Only Department of Urology in [place], [place] [address] [place] [phone] Zahra Tinoco P.A.-C. 06/20/2024 Clinical Communication Department of Urology in [place], [place] [address] [place] [address] Zahra Tinoco P.A.-Chirag. Appt Request from Last 3 Months Family History Medical History Relation Name Comments Prostate cancer Brother 1 Benito Smalls Age 58 Prostate cancer Brother 2 Diallo Smalls Age 58 Coronary artery disease Father Yosi Smalls at 70 Breast cancer Mother German Smalls 92 years old and she had a mastectomy Relation Name Status Comments Brother 1 Benito Smalls Brother 2 Diallo Smalls Father Yosi Smalls Mother German Smalls Social History Tobacco Use Types Packs/Day Years Used Date Smoking Tobacco: Never Passive Smoke Exposure: Never Smokeless Tobacco: Never Tobacco Cessation:Counseling Given: Not Answered Alcohol Use Standard Drinks/Week Comments Yes 7 (1 standard drink = 0.6 oz pur e alcohol) [facility] Utilities Answer Date Recorded In the past 12 months has e [employer], gas, oil, or water [employer] threatened to shut off services in your [...] your living situation today? I have a [facility] place to live 02/21/2024 Sex and Gender Information Value Date Recorded Sex Assigned at Male 02/21/2024 8:00 PM CDT Legal Sex Male 8:12 PM TAPE CUTTER Gender Identity Male 02/21/2024 8:00 PM CDT Sexual Orientation Straight 02/21/2024 8: 00 PM CDT Last Filed Vital Signs Vital Sign Reading Time Taken Comments Blood Pressure 108/80 11/13/2015 9:54 AM TAPE CUTTER Vital sign result from Clinical Notes. Pulse 94 11/13/2015 9:54 AM TAPE CUTTER Vital sign result from Clinical Notes. Temperature - - Respiratory Rate 16 11/13/2015 9:54 AM TAPE CUTTER Vital sign result from Clinical Notes. Oxygen Saturation - - Inhaled Oxygen Concentration - - Weight 76.7 kg (169 lb 1.5 oz) 11/13/2015 9:54 AM TAPE CUTTER Vital sign result from Clinical Notes. Height 182.8 cm (5' 11.97) 11/13/2015 9:54 AM TAPE CUTTER Vital sign result from Clinical Notes. Body Mass Index 22.95 11/13/2015 9:54 AM TAPE CUTTER Plan of Treatment Upcoming Encounters Date Type Department Care Team (Latest Contact Info) Description 10/03/2024 1:00 PM TAPE CUTTER Clinical Communication Virtual Review in [place], [place] [address] [place] [address] 10/08/2024 8:00 AM TAPE CUTTER Procedure visit Department of Urology in [place], [place] [address] [place] [phone] Magdaleno Jimenez M.D. [address] [place] [phone] 10/08/2024 8:30 AM TAPE CUTTER Office Visit Department of Urology in [place], [place] [address] [place] [phone] Magdaleno Jimenez M.D. [address] [place] [address] Health Maintenance Due Date Last Done Comments CT Colonography 1949 Cologuard 1950 Colonoscopy 1950 Colorectal Cancer Surveillance 1950 Creatinine Level (Kidney Fun ction Test) 1949 Fasting Glucose for Diabetes Screening 1950 Hepatitis C Screening 1950 Potassium Level 1949 Sodium Level 1949 Visit: Annual, age 65+ (or Medicare and <65) 1949 Visit: Medicare Annual Wellness 1950 IPV Vaccines (2 of 3 - Adult catch-up series) 04/03/2007 03/06/2007 Depression Screening (Annual PHQ-2) 10/23/2023 Fall Risk Screen (Annual) 10/23/2023 COVID-19 Vaccine (7 2023-2 5 season) 2024 07/24/2023, 07/12/2022, 04/19/2022, Additional history exists Influenza Vaccine (#1) 2024 , 07/12/2022, 07/05/2021, Additional history exists DTaP,Tdap,and Td Vaccines (3 - Td or Tdap) 05/23/2026 05/23/2016, 03/06/2007 Zoster Vaccines Completed 10/04/2019, 06/23, 08/14/2012 Pneumococcal vaccine (65+ years) Completed 07/12/20, 11/15/2016 Insurance [facility] Advance Directives For more information, please contact: [phone] Documents on File Type Date Recorded Patient Cna Hha Expl anation Advance Directives 02/26/2024 9:29 AM Mohini Sanchez HCPOA/ADVOCATE/AGENT/R EPRESENTATIVE/SURROGAT E Healthcare Agents on File Name Relationship Healthcare Agent Relationshi p Communication Mohini Kaye Daughter Health Care Agent Luana Sanchez Daughter First [facility] Ca re Agent Care Teams Staff Analyst Relationship Specialty Start Date End Date None Reported, Pcp PCP - General 08/30/24
--- OUTSIDE RECORDS SUMMARY | 2024-09-11 05:35 | XMS_ITS | Encounter Summary ---
Author Organization [facility] Address [address] [place] [address] Care Team Providers Care Roller Embosser Name Role Phone Elsewhere, Pcp Primary Care Provider Unavailabl e Reason for Visit * Reason Onset Date Comments Appt Request 06/20/2024 Encounter Details Date Type Department Care Team (Late st Contact Info) Description 06/20/2024 Clinical Communication Department of Urology in [place], [place] [address] [place] [address] Zahra Tinoco, P.ARain-C. [address] [place] [address] Appt Request Social History Tobacco Use Types Packs/Day Years Used Date Smoking Tobacco: Never Passive Smoke Exposure: Never Smokeless Tobacco: Never [facility] Utilities Answer Date Recorded In the past 12 months has [employer], gas, oil, or water [employer] threatened to shut off services in your [...] your living situation today? I have a [facility] place to live 02/21/2024 Sex and Gender Information Value Date Recorded Sex Assigned at Male 02/21/2024 8:00 PM CDT Legal Sex Male 8:12 PM CLARIFICATION OPERATOR Gender Identity Male 02/21/2024 8:00 PM CDT Sexual Orientation Straight 02/21/2024 8: 00 PM CDT documented as of this encounter Plan of Treatment Upcoming Encounters Date Type Department Care Team (Latest Contact Info) Description 10/03/2024 1:00 PM CLARIFICATION OPERATOR Clinical Communication Virtual Review in [place], [place] [address] [place] [address] 10/08/2024 8:00 AM CLARIFICATION OPERATOR Procedure visit Department of Urology in [place], [place] [address] [place] [phone] Magdaleno Jimenez M.D. [address] [place] [phone] 10/08/2024 8:30 AM CLARIFICATION OPERATOR Office Visit Department of Urology in [place], [place] [address] [place] [phone] Magdaleno Jimenez M.D. [address] [place] [phone] documented as of this encounter Visit Diagnoses Not on filedocumented in this encounter Care Teams Roller Embosser Relationship Specialty Start Date End Date Elsewhere, Pcp PCP - General Internal Medicine 02/19/24 08/29/24 documented as of this encounter
--- OUTSIDE RECORDS SUMMARY | 2024-09-11 05:35 | XMS_ITS | Encounter Summary ---
Author Organization [facility] Address [address] [place] [address] Care Team Providers Care Market Investigator Name Role Phone Elsewhere, Pcp Primary Care Provider Unavailabl e Reason for Visit * Reason Onset Date Comments Pre-visit Intake 08/02/2024 Encounter Details Date Type Department Care Team (Latest Contact Info) Description 08/02/2024 3:00 PM CDT Clinical Communication Virtual Review in [place], [place] [address] [place] [address] Pre-visit Intake Social History Tobacco Use Types Packs/Day Years Used Date Smoking Tobacco: Never Passive Smoke Exposure: Never Smokeless Tobacco: Never Tobacco Cessation:Counseling Given: Not Answered Alcohol Use Standard Drinks/Week Comments Yes 7 (1 standard drink = 0.6 oz pur e alcohol) [facility] Utilities Answer Date Recorded In the past 12 months has [facility] [employer], gas, oil, or water [employer] threatened to shut off services in your [...] your living situation today? I have a [facility] place to live 02/21/2024 Sex and Gender Information Value Date Recorded Sex Assigned at Male 02/21/2024 8:00 PM CDT Legal Sex Male 8:12 PM MANAGER MEETING Gender Identity Male 02/21/2024 8:00 PM CDT Sexual Orientation Straight 02/21/2024 8: 00 PM CDT documented as of this encounter Plan of Treatment Upcoming Encounters Date Type Department Care Team (Latest Contact Info) Description 10/03/2024 1:00 PM MANAGER MEETING Clinical Communication Virtual Review in [place], [place] [address] [place] [address] 10/08/2024 8:00 AM MANAGER MEETING Procedure visit Department of Urology in [place], [place] [address] [place] [phone] Magdaleno Jimenez M.D. [address] [place] [phone] 10/08/2024 8:30 AM MANAGER MEETING Office Visit Department of Urology in [place], [place] [address] [place] [phone] Magdaleno Jimenez M.D. [address] [place] [phone] documented as of this encounter Visit Diagnoses Not on filedocumented in this encounter Care Teams Market Investigator Relationship Specialty Start Date End Date Elsewhere, Pcp PCP - General Internal Medicine 02/19/24 08/29/24 documented as of this encounter
--- OUTSIDE RECORDS SUMMARY | 2024-09-11 05:35 | XMS_ITS ---
Author Organization [facility] Address [address] [place] [address] Care Team Providers Care Skin Washer Name Role Phone Unavailable Unavailable Unavailable Surgery Details Not on file Complications Check Surgery Details section. Procedure Estimated Blood Loss Check Surgery Details section. Procedure Findings Check Surgery Details section. Procedure Specimens Taken Check Surgery Details section.
--- OUTSIDE RECORDS SUMMARY | 2024-09-11 05:35 | XMS_ITS | Referral Summary ---
Author Organization [facility] Address [address] [place] [address] Care Team Providers Care Hog Counter Name Role Phone None Reported, Pcp Primary Care Provider Unavail able Source Comments Patient records contain information from all sites at [facility]. For routine questions regarding patient records, call [phone] during business hours, M-F 8:00 AM - 5:00 PM Central Time. Record requests for emergency care only can be directed to [phone] at any time.[facility] Encounters Date Type Department Care Team Description 08/05/2024 11:00 AM CDT Office Visit Department of Urology in [place], [place] [address] [place] [phone] Zahra Tinoco, P.A.-C. Incontinence Urinary Stress And Urge (Primary Dx); Incontinence Urinary Stress Male 08/02/2024 3:00 PM CDT Clinical Communication Virtual Review in [place], [place] [address] [place] [address] Pre-visit Intake 06/20/2024 Orders Only Department of Urology in [place], [place] [address] [place] [phone] Zahra Tinoco, P.A.-C. 06/20/2024 Clinical Communication Department of Urology in [place], [place] [address] [place] [phone] Zahra Tinoco, P.A.-C. Appt Request from Last 3 Months Allergies No known active allergies Medications lisinopriL [...] 2 g by mouth as needed. Active Social History Tobacco Use Types Packs/Day Years Used Date Smoking Tobacco: Never Passive Smoke Exposure: Never Smokeless Tobacco: Never Tobacco Cessation:Counseling Given: Not Answered Alcohol Use Standard Drinks/Week Comments Yes 7 (1 standard drink = 0.6 oz pur e alcohol) [facility] [employer] Answer Date Recorded In the past 12 months has e [employer], [employer], or water [employer] threatened to shut off services in your [...] your living situation today? I have a [facility] place to live 02/21/2024 Sex and Gender Information Value Date Recorded Sex Assigned at Male 02/21/2024 8:00 PM CDT Legal Sex Male 8:12 PM ACCOUNT PLANNER Gender Identity Male 02/21/2024 8:00 PM CDT Sexual Orientation Straight 02/21/2024 8: 00 PM CDT Last Filed Vital Signs Vital Sign Reading Time Taken Comments Blood Pressure 108/80 11/13/2015 9:54 AM ACCOUNT PLANNER Vital sign result from Clinical Notes. Pulse 94 11/13/2015 9:54 AM ACCOUNT PLANNER Vital sign result from Clinical Notes. Temperature - - Respiratory Rate 16 11/13/2015 9:54 AM ACCOUNT PLANNER Vital sign result from Clinical Notes. Oxygen Saturation - - Inhaled Oxygen Concentration - - Weight 76.7 kg (169 lb 1.5 oz) 11/13/2015 9:54 AM ACCOUNT PLANNER Vital sign result from Clinical Notes. Height 182.8 cm (5' 11.97) 11/13/2015 9:54 AM ACCOUNT PLANNER Vital sign result from Clinical Notes. Body Mass Index 22.95 11/13/2015 9:54 AM ACCOUNT PLANNER Plan of Treatment Upcoming Encounters Date Type Department Care Team (Latest Contact Info) Description 10/03/2024 1:00 PM ACCOUNT PLANNER Clinical Communication Virtual Review in [place], [place] [address] [place] [address] 10/08/2024 8:00 AM ACCOUNT PLANNER Procedure visit Department of Urology in [place], [place] [address] [place] [phone] Magdaleno Jimenez M.D. [address] [place] [phone] 10/08/2024 8:30 AM ACCOUNT PLANNER Office Visit Department of Urology in [place], [place] [address] [place] [address] Magdaleno Jimenez M.D. [address] [place] [phone] Insurance [facility] Advance Directives For more information, please contact: [phone] Documents on File Type Date Recorded Patient Surgical Sales Representative Expl anation Advance Directives 02/26/2024 9:29 AM Mohini Sanchez HCPOA/ADVOCATE/AGENT/R EPRESENTATIVE/SURROGAT E Healthcare Agents on File Name Relationship Healthcare Agent Relationshi p Communication Mohini Kaye Daughter Health Care Agent Luana Sanchez Daughter First [facility] Ca re Agent Care Teams Hog Counter Relationship Specialty Start Date End Date None Reported, Pcp PCP - General 08/30/24
--- OUTSIDE RECORDS SUMMARY | 2024-09-11 05:35 | XMS_ITS | Encounter Summary ---
Author Organization [facility] Address [address] [place] [address] Care Team Providers Care Defense Attorney Name Role Phone Elsewhere, Pcp Primary Care Provider Unavailabl e Reason for Referral * Outpatient (Routine) - Closed Specialty Diagnoses / Procedures Referred By Amber sebastian Referred To Contact Urology Zahra Tinoco P.A.-C. [address] [place] [phone] Phone: tel: fax: Zahra Tinoco P.A.-C. [address] [place] [phone] Phone: tel: fax: Referral ID Status Reason Start Date Expiration Date Visits Re quested Visits Authorized [id number] Closed 06/20/2024 12/20/2025 1 1 Encounter Details Date Type Department Care Team (Late st Contact Info) Description 06/20/2024 Orders Only Department of Urology in [place], [place] [address] [place] [phone] Zahra Tinoco P.A.-C. [address] [place] [phone] Social History Tobacco Use Types Packs/Day Years Used Date Smoking Tobacco: Never Passive Smoke Exposure: Never Smokeless Tobacco: Never [facility] Utilities Answer Date Recorded In the past [...] your living situation today? I have a [facility] place to live 02/21/2024 Sex and Gender Information Value Date Recorded Sex Assigned at Male 02/21/2024 8:00 PM CDT Legal Sex Male 8:12 PM SUGAR PLANTATION MANAGER Gender Identity Male 02/21/2024 8:00 PM CDT Sexual Orientation Straight 02/21/2024 8: 00 PM CDT documented as of this encounter Plan of Treatment Upcoming Encounters Date Type Department Care Team (Latest Contact Info) Description 10/03/2024 1:00 PM SUGAR PLANTATION MANAGER Clinical Communication Virtual Review in [place], [place] [address] [place] [address] 10/08/2024 8:00 AM SUGAR PLANTATION MANAGER Procedure visit Department of Urology in [place], [place] [address] [place] [address] Magdaleno Jimenez M.D. [address] [place] [phone] 10/08/2024 8:30 AM SUGAR PLANTATION MANAGER Office Visit Department of Urology in [place], [place] [address] [place] [address] Magdaleno Jimenez M.D. [address] [place] [phone] Scheduled Referrals Name Type Priority Associated Diagnoses Caite r Schedule Urology office visit (clinic) General Outpatient Referral Routine Expected: 07/29/2024, Expires: 09/20/2025 documented as of this encounter Visit Diagnoses Not on filedocumented in this encounter Care Teams Defense Attorney Relationship Specialty Start Date End Date Elsewhere, Pcp PCP - General Internal Medicine 02/19/24 08/29/24 documented as of this encounter
[2024-09-11 05:36] LABS: Troponin, Point-of-Care* 0.01 ng/ml (0.01-0.04)
[2024-09-11 05:54] LABS: RBC Urine 0-2 (0-2); WBC Urine 0-2 (0-5)
[2024-09-11 06:05] LABS: Albumin* 3.9 g/dL (3.3-5.0)
[2024-09-11 06:06] LABS: Chloride* 102 mmol/L (96-114); Potassium* 3.9 mmol/L (3.6-5.1); Sodium* 135 mmol/L (135-149)
[2024-09-11 06:08] LABS: Alkaline Phosphatase* 48 U/L (40-150); Anion Gap 7 mEq/L (7-15); Aspartate Amino Transferase* 20 U/L (12-35); Bilirubin Total* 0.3 mg/dL (0.1-1.5); Blood Urea Nitrogen* 21 mg/dL (7-30); Carbon Dioxide* 26 mmol/L (20-32); Creatinine* 0.8 mg/dL (0.5-1.5); Est. Creatinine Clearance* 71.13; Estimated Glomerular Filt Rate 93 ml/min; Lipase* 62 U/L (23-300); Total Protein* 6.5 g/dL (6.0-8.3)
[2024-09-11 06:09] LABS: Alanine Aminotransferase* 19 U/L (4-50); Calcium* 9.1 mg/dL (8.4-10.6); Glucose* 102 mg/dL (60-115)
--- NOTE | 2024-09-11 06:13 | CRLHL7_ITS ---
For Patients: As a result of the Century Cures Act, medical imaging exams and procedure reports are released immediately into your electronic medical record. You may view this report before your referring provider. If you have questions, please contact your health care provider. INDICATION: Abdominal pain COMPARISON: None TECHNIQUE: CT examination of the abdomen and pelvis was performed following the uneventful intravenous administration of 77 cc of Isovue 370. Thin section axial images were obtained from the lung bases through the pubic symphysis. Oral contrast was not administered. Please note that all CT scans at this facility use dose modulation, iterative reconstruction, and/or weight-based dosing when appropriate to reduce radiation dose to as low as reasonably achievable. FINDINGS: LUNG BASES: Minimal basilar atelectasis or scarring.Heart size normal the lung bases. Vascular calcifications associated with the heart. LIVER/BILIARY SYSTEM:Steatosis. Low-density lesions likely cysts. No biliary ductal dilation. Normal-appearing gallbladder. ADRENALS: Normal KIDNEYS, URETERS and BLADDER:The kidneys appear normal other than low-density lesions, likely cysts. No calcified calculus. No hydronephrosis or hydroureter. The bladder appears normal. SPLEEN:Normal appearance. PANCREAS: Appears normal. RETROPERITONEUM and MESENTERY: There is no mass, adenopathy or aortic aneurysm. Atherosclerotic vascular calcification. Diffuse vascular ectasia without tristan aneurysm. GASTROINTESTINAL SYSTEM: There is no evidence of diverticulitis, colitis, mechanical obstruction, or appendicitis. The small bowel as visualized appears normal.Moderate diffuse fecal retention. Diverticulosis. PELVIS: No mass, adenopathy or free fluid. OSSEOUS STRUCTURES and ABDOMINAL WALL: There is an age-appropriate appearance of the osseous structures.No significant abdominal wall defect. OTHER: No free fluid or free air. IMPRESSION: 1. Moderate diffuse fecal retention. Diverticulosis. 2. Other incidental findings as discussed in the body of the report. 3. No specific visible cause for abdominal pain Please note that all CT scans at this facility use dose modulation, iterative reconstruction, and/or weight-based dosing when appropriate to reduce radiation dose to as low as reasonably achievable. Dictated by Rayray Gonzales MD @ 09/11/2024 7:06:12 AM (Electronically Signed)
[2024-09-11 06:22] LABS: C Reactive Protein* < 0.5 mg/dL (0.5-1.0)
[2024-09-11 06:31] VITALS: BP 146/92; PULSE 68; RESP 16; O2SAT 95
== END 2024-09-11 07:26 | disposition home or self-care (01) ==
PROVIDERS: Emergency Provider Family Medicine; PCP Family Medicine
DX: R10.9 Unspecified abdominal pain (principal)
CPT/HCPCS: 36415; 74177; 80053; 81001; 83605; 83690; 84484; 85025; 85379; 86140; 93005; 99284; 99285; Q9967

== ENCOUNTER 2024-12-23 14:49 | Outpatient (CLI) | payer MEDICARE, BC, SELFPAY | END 2024-12-23 14:50 | disposition home or self-care (01) | LOC: LKVREF 14:53 | PROVIDERS: PCP Family Medicine; Visit Provider Family Medicine | DX: D64.9 Anemia, unspecified (principal) | CPT/HCPCS: 82607; 82728; 83540 ==

== ENCOUNTER 2024-12-25 10:15 | Outpatient (CLI) | payer MEDICARE, BC, SELFPAY ==
--- NOTE | 2024-12-25 10:15 | CRLHL7_ITS ---
For Patients: As a result of the Century Cures Act, medical imaging exams and procedure reports are released immediately into your electronic medical record. You may view this report before your referring provider. If you have questions, please contact your health care provider. Indication: Lightheaded. Visual symptoms. Technique: Multiplanar multisequence noncontrast MR images of the brain. Comparison: None. Findings: Mild diffuse cerebral volume loss. No mass effect or midline shift. Small scattered FLAIR hyperintensities in the supratentorial white matter, typical for mild chronic microvascular ischemic changes. No intracranial hemorrhage or pathologic extra-axial fluid collection. No diffusion restriction to suggest acute infarction. The major arterial flow voids of the skull base are preserved. Globes are symmetric. Mild ethmoid sinus mucosal thickening. Trace left mastoid fluid. Impression: 1. No acute intracranial abnormality. 2. Mild chronic microvascular ischemic changes and diffuse cerebral volume loss. Dictated by Tera Swanson MD @ 12/25/2024 1:08:18 PM (Electronically Signed)
== END 2024-12-25 10:16 | disposition home or self-care (01) ==
LOC: MRI 10:16
PROVIDERS: PCP Family Medicine; Visit Provider Family Medicine
DX: R42 Dizziness and giddiness (principal); I67.82 Cerebral ischemia
CPT/HCPCS: 70551

== ENCOUNTER 2025-04-04 16:38 | Outpatient (REF) | payer MEDICARE, BC, SELFPAY ==
[2025-04-04 16:47] LABS: Appearance Urine Clear (Clear); Bilirubin Urine Negative (Negative); Blood Urine Negative (Negative); Color Urine Yellow (Yellow); Glucose Urine Negative (Negative); Ketones Urine Negative (Negative); Leukocyte Esterase Urine Negative (Negative); Nitrite Urine Negative (Negative); Protein Urine Negative (Negative); Urobilinogen Urine 0.2 (0.2-1.0); pH Urine 5.5 (5.0-8.5)
[2025-04-04 16:49] LABS: RBC Urine 0-2 (0-2); WBC Urine 0-2 (0-5)
== END 2025-04-04 16:39 | disposition home or self-care (01) ==
LOC: NPINS 16:38
PROVIDERS: PCP Family Medicine; Visit Provider Surgery
DX: N39.3 Stress incontinence (female) (male) (principal)
CPT/HCPCS: 81001; 87086